=== PATIENT | female | born 1955 | race Caucasian/White ===

== ENCOUNTER → 2017-02-03 | Outpatient (CLI) | payer OTHER | LOC: CAT 12:52 | DX: J85.1 Abscess of lung with pneumonia (principal) ==

== ENCOUNTER → 2018-04-28 | Outpatient (CLI) | payer OTHER ==
--- NOTE | ~2018-04-28 | 2DMMODE ---
[facility] [address] [place] [address] 2 D/M-MODE ECHOCARDIOGRAM Name: JUSTINBELKYSDAVE MOHAN Room #: REG [facility]#: [id number] Admission: 04/28/18 Attend Phys: Wili Guillaume Discharge: Date of : 55 Date of Service: 04/28/18 1412 Report #: [id number] THIS REPORT FOR: //name// APPROVED REPORT Study performed: 04/28/2018 13:24:40 EXAM: Comprehensive 2D, Doppler, and color-flow Echocardiogram Patient Location: Out-Patient Status: routine BSA: 2.44 HR: 88 bpm BP: 130/80 mmHg Other Information Study Quality: Technically Difficult Technically limited study due to body habitus. Indications PVC's 2D Dimensions RVDd: 31.33 mm IVSd: 12.56 (7-11mm) LVOT Diam: 21.61 (18-24mm) LVDd: 42.77 mm PWd: 11.84 (7-11mm) Ascending Ao: 34.81 (22-36mm) LVDs: 29.90 (25-40mm) Aortic Root: 26.85 mm IVC: 10.00 mm Volumes Left Atrial Volume (Systole) Single Plane 4CH: 25.03 mL Single Plane 2CH: 27.52 mL LA ESV Index: 12.00 mL/m2 Aortic Valve AoV Peak Steve.: 1.47 m/s AO Peak Gr.: 8.63 mmHg LVOT Max P.28 mmHg LVOT Max V: 0.91 m/s WALLY Vmax: 2.26 cm2 Mitral Valve E/A Ratio: 0.7 MV Decel. Time: 218.13 ms [facility] [address] [address] 2 D/M-MODE ECHOCARDIOGRAM Name: JUSTINBELKYS ROACHYCE Room #: REG [facility]#: [id number] Admission: 04/28/18 Attend Phys: Wili Guillaume Discharge: Date of : 55 Date of Service: 04/28/18 1412 Report #: [id number] MV E Max Steve.: 0.43 m/s MV A Steve.: 0.63 m/s MV PHT: 63.26 ms IVRT: 100.35 ms Pulmonary Valve PV Peak Steve.: 1.50 m/s PV Peak Gr.: 9.02 mmHg Tricuspid Valve TR Peak Steve.: 2.79 m/s RAP Estimate: 5.00 mmHg TR Peak Gr.: 31.15 mmHg PA Pressure: 36.00 mmHg Left Ventricle The left ventricle is normal size. Mild concentric left ventricular hypertrophy. The left ventricular systolic function is normal. The left ventricular ejection fraction is within the normal range. LVEF is 60-65%. Mild diastolic dysfunction is present (impaired relaxation pattern). Right Ventricle The right ventricle is normal size. The right ventricular systolic function is normal. Atria The left atrium size is normal. The right atrium size is normal. Aortic Valve The aortic valve is normal in structure. Trace aortic regurgitation. There is no aortic valvular stenosis. Mitral Valve The mitral valve is normal in structure. There is no mitral valve regurgitation noted. No evidence of mitral valve stenosis. Tricuspid Valve The tricuspid valve is normal in structure. Trace tricuspid regurgitation. PAP is estimated at 36 mmHg. Pulmonic Valve Pulmonic valve is not well visualized. There is no pulmonic valvular regurgitation. Great Vessels The aortic root is normal in size. IVC is normal in size and [facility] [address] [place] [place] [address] 2 D/M-MODE ECHOCARDIOGRAM Name: BELKYS ANDERSON MARQUES Room #: REG Em#: [id number] Admission: 04/28/18 Attend Phys: Wili Guillaume Discharge: Date of : 55 Date of Service: 04/28/18 1412 Report #: [id number] collapses >50% with inspiration. Pericardium There is no pericardial effusion. <Conclusion> The left ventricle is normal size. The aortic valve is normal in structure. Trace aortic regurgitation. The mitral valve is normal in structure. The tricuspid valve is normal in structure. Trace tricuspid regurgitation. PAP is estimated at 36 mmHg. Pulmonic valve is not well visualized. There is no pericardial effusion. <ELECTRONICALLY SIGNED> By: Jeffrey Ignacio MD 04/28/181411 11 11 Jeffrey Ignacio MD /INF
== END ==
LOC: CV 10:36
DX: I51.7 Cardiomegaly (principal); I49.3 Ventricular premature depolarization

== ENCOUNTER → 2019-07-13 | Outpatient (CLI) | payer OTHER | LOC: RAD 13:57 | DX: J45.40 Moderate persistent asthma, uncomplicated (principal) ==

== ENCOUNTER → 2021-01-22 | Outpatient (CLI) | payer OTHER, MEDICARE | LOC: SJCVC 14:38 | PROVIDERS: ATTEND Internal Medicine Cardiovascular Disease | DX: I45.10 Unspecified right bundle-branch block (principal); I49.9 Cardiac arrhythmia, unspecified; I49.3 Ventricular premature depolarization; I10 Essential (primary) hypertension; E03.9 Hypothyroidism, unspecified; E66.9 Obesity, unspecified; G47.33 Obstructive sleep apnea (adult) (pediatric); J45.909 Unspecified asthma, uncomplicated; E55.9 Vitamin D deficiency, unspecified; Z68.41 Body mass index [BMI] 40.0-44.9, adult; Z90.49 Acquired absence of other specified parts of digestive tract; Z90.710 Acquired absence of both cervix and uterus; Z88.0 Allergy status to penicillin; Z88.2 Allergy status to sulfonamides; Z88.8 Allergy status to other drugs, medicaments and biological substances; Z79.899 Other long term (current) drug therapy; Z87.891 Personal history of nicotine dependence ==